=== PATIENT | female | born 1990 | race Caucasian/White ===

== ENCOUNTER → 2022-07-28 09:38 | Outpatient (CLI) | payer MEDICAID, SELFPAY ==
[2022-07-28 11:03] LABS: HCG,Quantitative 45 mIU/ml (0-5.42)
[2022-07-29 09:51] LABS: Progesterone 17.6 ng/mL (.)
== END ==
PROVIDERS: Visit Provider Obstetrics & Gynecology
DX: Z34.90 Encounter for supervision of normal pregnancy, unspecified, unspecified trimester (principal)
CPT/HCPCS: 36415; 84144; 84702

== ENCOUNTER → 2022-07-30 10:24 | Outpatient (CLI) | payer MEDICAID, SELFPAY ==
[2022-07-30 12:34] LABS: HCG,Quantitative 145 mIU/ml (0-5.42)
== END ==
PROVIDERS: Visit Provider Obstetrics & Gynecology
DX: Z34.90 Encounter for supervision of normal pregnancy, unspecified, unspecified trimester (principal)
CPT/HCPCS: 36415; 84702

== ENCOUNTER 2022-08-20 14:29 | Emergency (ER) | payer MEDICAID, SELFPAY ==
[2022-08-20 14:30] VITALS: BP 136/88; PULSE 120; RESP 17; TEMP 36.8; O2SAT 100; BMI 19.3
--- NOTE | 2022-08-20 14:38 | HMH.EDNVD ---
Discharge Plan Disposition Patient Disposition: Home, Self-Care Prescriptions Prescriptions: New metoclopramide HCl [Reglan] 10 mg tablet 10 mg PO Q6H PRN (Reason: nausea and vomiting) Qty: 20 0RF Referrals Follow up/Referrals: Provider,Referral, [Primary Care Provider] - See instructions Activity Restrictions/Add. Instructions Additional Instructions/Restrictions: Drink clear liquids for the next day or 2. Your work-up in the emergency department and not reveal any life-threatening conditions. It seems that you are having vomiting from your . This is called hyperemesis gravidarum. Please return to the emergency department immediately if you feel worse in any way. Follow-up with your patient accounts coordinator/hse specialist in the next 2 to 3 days if you do not improve. Clinical Impressions Clinical Impression: Hyperemesis gravidarum Instructions Patient Instructions: DI for Hyperemesis Gravidarum Discharge ED Provider: Raz Ruiz Nausea/Vomiting/Diarrhea HPI General Chief complaint: Nausea/Vomiting/Diarrhea Stated complaint: nausea,7 weeks ,possible dehydrated Time Seen by Provider: 08/20/22 14:33 Mode of Arrival: Family Vehicle Source of Information: Patient History of Present Illness HPI Narrative: The patient presents to the emergency department complaining of nausea and vomiting for about 1 week. She states that she is 7 weeks . This is her third . She denies any vaginal bleeding or abdominal pain. She also denies pelvic pain. She states that she did have nausea and vomiting with the other 2 pregnancies. However this seems to be worse than the prior ones. She feels lightheaded when standing. She has not had any syncopal episodes. She has not had any diarrhea. And she has had no fever. Related Data Previous Rx's Medication Instructions Recorded metoclopramide HCl 10 mg tablet 10 mg PO Q6H PRN nausea and 08/20/22 (Reglan) vomiting #20 tabs Allergies Allergy/AdvReac Type Severity Reaction Status Date / Time No Known Allergies Allergy Verified 07/27/22 13:22 [facility] Disclaimer: The information contained in this section may have been updated after the patient was seen, as this information can be updated by other users. Medical History (Updated 08/20/22 @ 15:10 by Raz Ruiz MD) No significant past medical history Family History (Updated 04/22/23 @ 14:46 by Milvia Montgomery RN) Other No significant family history Social History (Updated 08/20/22 @ 14:46 by Milvia Montgomery RN) Smoking Status: Never smoker alcohol intake: never current occupational status: other Travel in the last 8 weeks: None ROS Obtained: Yes All systems reviewed & no additional complaints except as documented Physical Exam General General appearance: alert Head Head exam: atraumatic Eye Eye exam: Present normal appearance; Absent scleral icterus or jaundice ENT ENT exam: Present normal exam Neck Neck exam: Present normal inspection and full ROM; Absent tenderness or meningismus Chest Chest inspection: Present normal inspection and symmetric chest wall rise; Absent tenderness Respiratory Respiratory exam: Present normal lung sounds bilaterally; Absent respiratory distress or accessory muscle use Cardiovascular Cardiovascular exam: Present regular rate, normal rhythm, tachycardia and normal heart sounds Abdominal Exam Abdominal exam: Present soft and normal bowel sounds; Absent distention, tenderness, heel tap sign, Hickman's sign, Rovsing's sign, tenderness at McBurney's Point or mass Extremities Exam Extremities exam: Present normal inspection and full ROM Back Exam Back exam: Present normal inspection; Absent CVA tenderness (R) or CVA tenderness (L) Neurological Exam Neurological exam: Present alert and oriented X3 Psychiatric Psychiatric exam: Present normal affect and normal mood Skin Skin exam: Present warm, dry, intact and normal co
[2022-08-20 14:47] LABS: Microscopic, Urine URINE MICROSCOPIC (MICROSCOPIC)
[2022-08-20 14:48] LABS: Appearance,Urine CLEAR (Clear); Bilirubin,Urine Negative (Negative); Blood, Urine Negative (Negative); Color,Urine YELLOW (Yellow); Glucose,Urine (UA) Negative (Negative); Ketones,Urine 3+ (Negative); Leukocyte Esterase,Urine Negative (Negative); Nitrate,Urine Negative (Negative); Protein,Urine Negative (Negative); Specific Gravity, Urine 1.015 (1.005-1.030); Urobilinogen,Urine 0.2 EU/dl (0.2)
[2022-08-20 14:54] LABS: Basophils % 0.2 % (0.1-2.0); Eosinophils # 0.1 K/mm3 (0.0-0.4); Eosinophils % 0.6 % (0.1-12.0); Hematocrit 40.1 % (37.0-47.0); Hemoglobin 13.4 g/dL (12.2-16.2); Lymphocytes # 2.4 K/mm3 (0.7-4.5); Lymphocytes % 24.9 % (10-50); Mean Corpuscular HGB Conc 33.5 g/dL (31.8-35.4); Mean Corpuscular Hemoglobin 30.8 pg (27.0-31.2); Mean Corpuscular Volume 92.1 fl (81-99); Mean Platelet Volume 8.5 fl (7.4-10.4); Monocytes # 0.6 K/mm3 (0.1-1.0); Monocytes % 6.1 % (1.7-9.3); Neutrophils # 6.7 K/mm3 (1.8-7.8); Neutrophils % 68.2 % (37.0-80.0); Platelet Count 253 K/mm3 (142-424); Red Blood Count 4.35 M/mm3 (4.20-5.40); Red Cell Distribution Width 12.5 % (11.5-17.5); White Blood Count 9.8 K/mm3 (4.8-10.8)
[2022-08-20 14:57] LABS: Chloride 101 mmol/L (98-107); Potassium 3.6 mmoL/L (3.5-5.1); Sodium 136 mmol/L (136-145)
[2022-08-20 14:59] LABS: Alanine Aminotransferase 18 U/L (12-78); Alkaline Phosphatase 68 U/L (38-126); Anion Gap 14.6 mEq/L (5-15); Aspartate Amino Transferase 29 U/L (14-36); Bilirubin,Total 0.6 mg/dl (0.2-1.3); Blood Urea Nitrogen 8 mg/dl (7-17); Carbon Dioxide 24 mmol/L (22.0-30.0); Creatinine Clearance Estimated 130 mL/min (50-200); Estimated Glomerular Filt Rate 146 ml/min (>60); GFR (African American) 177 ML/MIN (>60); Lipase 69 U/L (23-300)
[2022-08-20 15:00] LABS: Albumin Level 4.7 g/dl (3.5-5.0); Albumin/Globulin Ratio 1.3 (1.1-1.8); Calcium 9.5 mg/dl (8.4-10.2); Globulin 3.6 g/dL (1.3-3.2); Glucose 96 mg/dl (74-100); Total Protein,Serum 8.3 g/dl (6.3-8.2)
--- NOTE | 2022-08-20 15:04 | PC.NURSE ---
notified radiology ER MD ordering transvaginal u/s for r/o torsion. state she will call in staff
--- NOTE | 2022-08-20 15:08 | PC.NURSE ---
DR VEGA AT BEDSIDE TO REEVALUATE PT
[2022-08-20 15:18] LABS: Bacteria,Urine 1+ /lpf; RBC,Urine Occasional #/hpf (0-3)
--- NOTE | 2022-08-20 15:24 | PC.NURSE ---
DR VEGA AT BEDSIDE TO REEVALUATE PT AFTER PO FLUIDS. PT UPDATED ON POC AT THIS TIME
[2022-08-20 15:25] VITALS: BP 116/58; PULSE 89; RESP 18; O2SAT 100
[2022-08-20 15:30] VITALS: BP 119/68; PULSE 85; RESP 16; O2SAT 100
[2022-08-20 15:38] VITALS: BP 119/68; PULSE 82; RESP 17; TEMP 36.8; O2SAT 98
== END 2022-08-20 15:40 | disposition home or self-care (01) ==
PROVIDERS: Emergency Provider Emergency Medicine
DX: O21.9 Vomiting of pregnancy, unspecified (principal); Z3A.01 Less than 8 weeks gestation of pregnancy
CPT/HCPCS: 80053; 81001; 83690; 85025; 96360; 96361; 96374; 99284; 99285

== ENCOUNTER → 2022-08-23 17:11 | Outpatient (CLI) | payer MEDICAID, SELFPAY ==
[2022-08-23 18:09] LABS: Barbiturates Screen,Urine Negative ng/ml (<200)
[2022-08-23 18:10] LABS: Benzodiazepines Screen,Urine Negative ng/ml (<200)
[2022-08-23 18:11] LABS: Amphetamine/Metha Screen,Urine Negative ng/ml (<1000); Cannabinoid Screen,Urine Positive ng/ml (<50)
[2022-08-23 18:12] LABS: Cocaine Screen,Urine Negative ng/ml (<300)
[2022-08-23 18:13] LABS: Methadone Screen,Urine Negative ng/ml (<300); Opiate Screen,Urine Negative ng/ml (<300)
[2022-08-23 18:14] LABS: Phencyclidine Screen,Urine Negative ng/ml (<25)
[2022-08-26 05:34] LABS: Neisseria gonorrhoeae, NAA Negative (Negative)
== END ==
PROVIDERS: PCP Obstetrics & Gynecology; Visit Provider Obstetrics & Gynecology
DX: Z34.90 Encounter for supervision of normal pregnancy, unspecified, unspecified trimester (principal)
CPT/HCPCS: 80305; 87086; 87491; 87591

== ENCOUNTER → 2022-09-09 09:29 | Outpatient (CLI) | payer MEDICAID, SELFPAY ==
[2022-09-09 10:33] LABS: Basophils % 0.2 % (0.1-2.0); Eosinophils # 0.1 K/mm3 (0.0-0.4); Eosinophils % 0.9 % (0.1-12.0); Hematocrit 35.5 % (37.0-47.0); Hemoglobin 11.7 g/dL (12.2-16.2); Lymphocytes # 1.4 K/mm3 (0.7-4.5); Lymphocytes % 20.6 % (10-50); Mean Corpuscular HGB Conc 32.9 g/dL (31.8-35.4); Mean Corpuscular Hemoglobin 30.7 pg (27.0-31.2); Mean Corpuscular Volume 93.5 fl (81-99); Mean Platelet Volume 8.1 fl (7.4-10.4); Monocytes # 0.3 K/mm3 (0.1-1.0); Monocytes % 4.6 % (1.7-9.3); Neutrophils % 73.7 % (37.0-80.0); Platelet Count 241 K/mm3 (142-424); Red Cell Distribution Width 12.5 % (11.5-17.5); White Blood Count 6.8 K/mm3 (4.8-10.8)
[2022-09-10 10:38] LABS: HIV Screen 4th Generation wRfx Non Reactive (Non Reactive); Rapid Plasma Reagin Ab Titer Non Reactive (NonRea<1:1)
[2022-09-20 10:24] LABS: Hepatitis C Antibody Non Reactive
[2022-10-16 16:03] LABS: Hepatitis B Surface Antigen Negative
== END ==
PROVIDERS: Visit Provider Obstetrics & Gynecology
DX: Z34.90 Encounter for supervision of normal pregnancy, unspecified, unspecified trimester (principal)
CPT/HCPCS: 36415; 85025; 86593; 86703; 86762; 86850; 87340; 87380; G0432

== ENCOUNTER → 2022-11-23 10:24 | Outpatient (CLI) | payer MEDICAID, SELFPAY ==
--- NOTE | 2022-11-23 10:27 | US_ITS ---
PROCEDURE: US OB /MATERNAL DETAIL CLINICAL INDICATION: 20 week anatomy scan COMPARISON: No exams were available for comparison FINDINGS: Transabdominal and transvaginal sonographic images were obtained of the uterus. From her established due date she is 20 weeks 0 days. Single viable intrauterine gestation. Breech position. Placenta: Anteriorplacenta grade 1. THERE IS MARGINAL PLACENTA PREVIA 3.4 MM FROM THE INTERNAL CERVICAL OS TRANSVAGINAL VIEW There is average amount fluid. The cervix appears satisfactory. Closed and measuring 3.4 cm in length. Complete survey performed and was unremarkable on the submitted images as in PACS. No major anomalies identified on survey imaging by technologist. Active fetus. Three-vessel cord with satisfactory umbilical cord insertion. 4- chamber heart noted. Situs, aortic arch, LVOT, RVOT appear normal. Survey of brain & ventricles Unremarkable. Cerebellum, choroid plexus, cisterna magna, thalamus appears normal. Face and neck survey unremarkable. Profile, nose and lips, nasion appear normal. Diaphragm and chest views unremarkable. Abdomen: Both kidneys noted. 2.8 millimeter renal pyelectasis is noted on one kidney. Stomach and bladder noted and satisfactory. Spine: Survey of the spine satisfactory with no anomalies identified nor imaged. Upper, thoracic and lower spine appear normal. Both arms and legs noted. Amniotic Fluid: Adequate. Measurements: Average ultrasound age 20weeks 4days. Estimated due date by ultrasound age 1204/08/2023. Estimated weight 358g BPD = 20weeks 6days HC = 20weeks 1day AC = 20weeks 6days FL = 20weeks 2days Growth Percentile= 74 Heart Rate = 153bpm Cerebellum = 19weeks 6days Humerus = 20weeks 4days HC/AC is 1.12 FL/BPD is 0.67 FL/AC is 0.21 IMPRESSION: 1. Viable fetus in the breech presentation with an anterior placenta grade 1. 2. THE PLACENTA IS MARGINAL PREVIA 3.4 MM FROM THE INTERNAL OS. 3. There is mild renal pyelectasis in 1 kidney, 2.8 mm. 4. The rest of the anatomical scan appears normal. 5. Difficult examination due to the breech presentation. Dictated by: Lj Biswas MD 11/23/2022 16:46 Lj Biswas MD in OV 11/23/2022 16:46
== END ==
PROVIDERS: PCP Obstetrics & Gynecology; Visit Provider Obstetrics & Gynecology
DX: Z34.92 Encounter for supervision of normal pregnancy, unspecified, second trimester (principal); Z3A.20 20 weeks gestation of pregnancy
CPT/HCPCS: 76811

== ENCOUNTER → 2022-12-28 08:54 | Outpatient (CLI) | payer MEDICAID, SELFPAY ==
[2022-12-28 09:41] LABS: Basophils % 0.4 % (0.1-2.0); Eosinophils # 0.1 K/mm3 (0.0-0.4); Eosinophils % 1.1 % (0.1-12.0); Hematocrit 33.6 % (37.0-47.0); Hemoglobin 11.5 g/dL (12.2-16.2); Lymphocytes # 1.5 K/mm3 (0.7-4.5); Lymphocytes % 21.9 % (10-50); Mean Corpuscular HGB Conc 34.2 g/dL (31.8-35.4); Mean Corpuscular Hemoglobin 31.8 pg (27.0-31.2); Mean Corpuscular Volume 92.8 fl (81-99); Mean Platelet Volume 8.1 fl (7.4-10.4); Monocytes # 0.3 K/mm3 (0.1-1.0); Monocytes % 4.8 % (1.7-9.3); Neutrophils % 71.7 % (37.0-80.0); Platelet Count 238 K/mm3 (142-424); Red Blood Count 3.61 M/mm3 (4.20-5.40); Red Cell Distribution Width 13.1 % (11.5-17.5)
[2022-12-28 09:47] LABS: Glucose,Fasting 81 mg/dl (74-100)
[2022-12-28 11:09] LABS: Glucose 1 Hour 88 mg/dL (74-100)
== END ==
PROVIDERS: Visit Provider Obstetrics & Gynecology
DX: Z34.92 Encounter for supervision of normal pregnancy, unspecified, second trimester (principal); Z3A.26 26 weeks gestation of pregnancy
CPT/HCPCS: 36415; 82951; 85025

== ENCOUNTER → 2023-03-17 17:38 | Outpatient (CLI) | payer MEDICAID, SELFPAY | PROVIDERS: PCP Obstetrics & Gynecology; Visit Provider Obstetrics & Gynecology | DX: Z34.93 Encounter for supervision of normal pregnancy, unspecified, third trimester (principal); Z3A.36 36 weeks gestation of pregnancy | CPT/HCPCS: 86403 ==

== ENCOUNTER 2023-04-03 18:50 | Inpatient (IN) | payer MEDICAID, SELFPAY ==
[2023-04-03 17:08] VITALS: BMI 24.6
[2023-04-03 17:09] VITALS: BP 134/92; PULSE 112; RESP 18; TEMP 36.6; O2SAT 99; BMI 24.6
[2023-04-03 17:35] LABS: Microscopic, Urine URINE MICROSCOPIC (MICROSCOPIC)
[2023-04-03 18:24] LABS: Appearance,Urine CLEAR (Clear); Bilirubin,Urine Negative (Negative); Blood, Urine Negative (Negative); Color,Urine YELLOW (Yellow); Glucose,Urine (UA) Negative (Negative); Ketones,Urine Negative (Negative); Leukocyte Esterase,Urine TRACE (Negative); Nitrate,Urine Negative (Negative); Protein,Urine Negative (Negative); Specific Gravity, Urine 1.015 (1.005-1.030)
[2023-04-03 18:28] LABS: Amphetamine/Metha Screen,Urine Negative ng/ml (<1000)
[2023-04-03 18:29] LABS: Barbiturates Screen,Urine Negative ng/ml (<200)
[2023-04-03 18:30] LABS: Benzodiazepines Screen,Urine Negative ng/ml (<200); Cannabinoid Screen,Urine Negative ng/ml (<50)
[2023-04-03 18:31] LABS: Cocaine Screen,Urine Negative ng/ml (<300); Methadone Screen,Urine Negative ng/ml (<300)
[2023-04-03 18:32] LABS: Opiate Screen,Urine Negative ng/ml (<300)
[2023-04-03 18:33] LABS: Phencyclidine Screen,Urine Negative ng/ml (<25)
[2023-04-03 18:40] LABS: Squamous Epithelial Cell,Urine Occasional #/hpf (0-5); WBC,Urine Occasional #/hpf (0-3)
--- NOTE | 2023-04-03 18:52 | EXP.OB.APHP ---
OB - H&P: HPI Antepartum History of Present Illness Chief complaint: Painful uterine contractions History of present illness: Ms Dolores Rose is a at 38w6d who presents to [facility] Labor and Delivery with complaint of painful uterine contractions that started at 0400 this morning. She has had good care. Baby is active. Denies leakage of fluid and vaginal bleeding. History of Present Criteria for establishing EDC:: LMP confirmed by 1st trimester US care: good care Ultrasounds: normal mid trimester US Obstetrical complications: none Medical complications: none Labs Blood type: A (+) positive Rubella: immune RPR/VDRL: nonreactive GBS status: negative HBsAG: negative [facility] Disclaimer: The information contained in this section may have been updated after the patient was seen, as this information can be updated by other users. Medical History (Updated 04/03/23 @ 19:07 by Rosalina Ward DO) Active labor Marginal placenta previa Marijuana use during with 38 completed weeks gestation Pyelectasis of fetus on ultrasound Surgical History No history of previous surgery Family History Other Cancer Diabetes No significant family history Social History Smoking Status: Never smoker alcohol intake: never substance use type: former substance user and marijuana current occupational status: unemployed Travel in the last 8 weeks: None Review of Systems Review of Systems Review of systems:: pertinent systems reviewed and negative unless documented below *Genitourinary Comments: + painful contractions Meds Home Medications and Allergies Home Medications Medication Instructions Recorded Confirmed Type prenat.vits,luisito,vxr-xlyu-glqhg 1 tab PO DAILY 08/23/22 03/28/23 History New Prescriptions to Start Prescriptions: Allergies Allergy/AdvReac Type Severity Reaction Status Date / Time No Known Allergies Allergy Verified 03/28/23 10:16 OB - H&P: Exam Physical Exam Vital signs: Temp Pulse Resp BP Pulse Ox O2 Del Method 97.9 F 112 H 18 134/92 H 99 Room Air 04/03/23 17:09 04/03/23 17:09 04/03/23 17:09 04/03/23 17:09 04/03/23 17:09 04/03/23 17:09 Constitutional no acute distress and cooperative Routine HEENT Exam Head: Present normocephalic and atraumatic Eye: Absent conjunctivae pink ENT: Present mucous membranes moist Routine Neck Exam Present full ROM Routine Respiratory Exam Present CTA bilaterally and normal respiratory effort Routine Cardiovascular Exam Present RRR Routine Abdominal Exam Present soft (Gravid); Absent tenderness Routine Rectal Exam Patient deferred: visual exam Routine Exam Patient deferred: external exam Routine Extremities Exam Present full ROM; Absent edema or calf tenderness Routine Neurological Exam Present alert, oriented X3 and moving all extremities Routine Psychiatric Exam Present normal affect and cooperative Detailed Labor and Delivery Exam Dilation (cm): 5 Effacement (%): 75 Cervix position: mid station: -1 Consistency: soft Membranes: intact Baseline heart rate: 130 monitor accelerations: Present monitor decelerations: Early prison variability: Moderate (11-25) OB - Results Labs Labs: Urine 04/03/23 Range/Units 17:08 Urine Color Yellow (Yellow) Urine Appearance Clear (Clear) Urine pH 7.0 (5.0-8.5) Ur Specific [place] 1.015 (1.005-1.030) Urine Protein Negative (Negative) Urine Glucose (UA) Negative (Negative) OB - A/P Antepartum (1) with 38 completed weeks gestation: Status: Acute (2) Active labor: Status: Acute (3) Marijuana use during : Status: Acute Additional Plan Planning to
[2023-04-03 19:47] VITALS: TEMP 37
[2023-04-03 19:48] LABS: Basophils % 0.2 % (0.1-2.0); Eosinophils # 0.1 K/mm3 (0.0-0.4); Eosinophils % 0.4 % (0.1-12.0); Hematocrit 30.7 % (37.0-47.0); Hemoglobin 10.4 g/dL (12.2-16.2); Lymphocytes # 1.9 K/mm3 (0.7-4.5); Lymphocytes % 14.2 % (10-50); Mean Corpuscular Hemoglobin 29.3 pg (27.0-31.2); Mean Platelet Volume 8.6 fl (7.4-10.4); Monocytes # 0.8 K/mm3 (0.1-1.0); Monocytes % 5.9 % (1.7-9.3); Neutrophils # 10.5 K/mm3 (1.8-7.8); Neutrophils % 79.4 % (37.0-80.0); Platelet Count 288 K/mm3 (142-424); Red Blood Count 3.57 M/mm3 (4.20-5.40); Red Cell Distribution Width 13.7 % (11.5-17.5); White Blood Count 13.2 K/mm3 (4.8-10.8)
--- NOTE | 2023-04-03 20:21 | P.PNANES_ITS ---
[facility] Disclaimer: The information contained in this section may have been updated after the patient was seen, as this information can be updated by other users. Medical History Active labor Marginal placenta previa Marijuana use during with 38 completed weeks gestation Pyelectasis of fetus on ultrasound Surgical History No history of previous surgery Family History Other Cancer Diabetes No significant family history Social History (Updated 04/03/23 @ 20:04 by Gali Castro RN) Smoking Status: Current every day smoker tobacco type: e-cigarettes alcohol intake: never substance use type: former substance user and marijuana current occupational status: unemployed Travel in the last 8 weeks: None do you feel safe at home: Yes victim of physical abuse: No victim of emotional abuse: No victim of sexual abuse: No [facility] Anesthesia Checklist Patient Identification Patient Identification: Arm Band Structural Data Admitted From: Inpatient Planned Operative Procedure/s: Labor Epidural Consent for Planned Operative Procedure(s) Verified: Yes Verified Documents: Surgical Consent and History and Physical NPO Status Verified Time NPO: 00:00 Additional verifications Anesthesia Reactions: No Airway Assessment Dentition: Good Dentition Neurological Assessment Level of Consciousness: Awake and Alert Anesthesia Plan Anesthesia Risk discussed: Yes Anesthesia Plan: Verified ASA Class: II Anesthesia Type: Epidural
--- NOTE | 2023-04-03 23:01 | EXP.DN ---
Delivery Note Delivery Date:: 04/03/23 Delivery Time:: 22:43 Anesthesia Type: Epidural Was labor medically induced?: No Gestational age (weeks): 38 Infant delivered prior to 39 weeks?: Yes Justification for early elective delivery:: Active Labor Gender: Female at 1 minute: 9 at 5 minutes: 9 Delivery Procedure:: Mom complete with epidural. Pushed for approximately 9 minutes. Head delivered spontaneously over intact perineum in DARRIUS position. Nuchal cord delivered through. Anterior shoulder delivered spontaneously. Posterior shoulder and remainder of body delivered spontaneously. Baby placed on maternal abdomen, mouth and nares bulb suctioned, warmed/dried and stimulated. Delayed cord clamping was performed for 60 seconds. Cord was clamped and cut by father of baby. Cord blood was obtained. Placenta delivered spontaneously and intact. Second degree perineal laceration repaired with 3-0 Vicryl. Hemostasis noted. Mom and baby were skin to skin and doing well after delivery. Live female baby (baby's name is Andreina) APGARs 9 (1 min), 9 (5 min) EBL 150 mL Placental Delivery Description: Spontaneous
[2023-04-04 04:47] VITALS: BP 120/74; PULSE 110; RESP 17; TEMP 37.1; O2SAT 99
[2023-04-04 06:36] LABS: Basophils % 0.2 % (0.1-2.0); Eosinophils # 0.1 K/mm3 (0.0-0.4); Eosinophils % 0.6 % (0.1-12.0); Hematocrit 30.4 % (37.0-47.0); Hemoglobin 10.1 g/dL (12.2-16.2); Lymphocytes # 1.3 K/mm3 (0.7-4.5); Lymphocytes % 8.4 % (10-50); Mean Corpuscular HGB Conc 33.3 g/dL (31.8-35.4); Mean Corpuscular Hemoglobin 28.3 pg (27.0-31.2); Mean Corpuscular Volume 85.1 fl (81-99); Mean Platelet Volume 8.6 fl (7.4-10.4); Monocytes # 0.9 K/mm3 (0.1-1.0); Monocytes % 5.7 % (1.7-9.3); Neutrophils # 13.1 K/mm3 (1.8-7.8); Neutrophils % 85.1 % (37.0-80.0); Platelet Count 260 K/mm3 (142-424); Red Blood Count 3.57 M/mm3 (4.20-5.40); Red Cell Distribution Width 13.8 % (11.5-17.5); White Blood Count 15.4 K/mm3 (4.8-10.8)
[2023-04-04 06:38] LABS: MANUAL DIFFERENTIAL MANUAL DIFFERENTIAL (MANUAL DIFF)
[2023-04-04 07:38] LABS: Lymphocytes % 8 % (10-50); Monocytes % 6 % (2-9); Neutrophils % 86 % (42-76); Platelet Estimate Normal; RBC Morphology Normal; Total Cells Counted 100
[2023-04-04 08:45] VITALS: BP 105/57; PULSE 104; RESP 18; TEMP 36.6; O2SAT 98
--- NOTE | 2023-04-04 15:33 | EXP.ACUTE.PN ---
Subjective *Date: 04/04/23 *Time: 15:33 Interval history: PPD # 1 s/p Resting comfortably in bed. Appropriate lochia. She is formula feeding. Voiding without difficulty and passing flatus. Tolerating regular diet. Denies fever/chills, chest pain and shortness of breath. No headaches, lightheadedness/dizziness. Ambulating well ad aileen. Medical Exam Vital signs and Labs for Last 24 Hours: Vital Signs Temp Pulse Resp BP Pulse Ox O2 Del Method 04/04/23 08:45 97.9 F 104 H 18 105/57 L 98 Room Air 04/04/23 04:47 98.7 F 110 H 17 120/74 99 Room Air 04/03/23 19:47 98.6 F 04/03/23 17:09 97.9 F 112 H 18 134/92 H 99 Room Air Intake and Output 04/03/23 04/04/23 04/04/23 23:59 07:59 15:59 Other: Weight 139 lb Laboratory Results - last 24 hr 04/03/23 17:08: Urine Color Yellow, Urine Appearance Clear, Urine pH 7.0, Ur Specific [place] 1.015, Urine Protein Negative, Urine Glucose (UA) Negative, Urine Ketones Negative, Urine Blood Negative, Urine Nitrate Negative, Urine Bilirubin Negative, Urine Urobilinogen 1.0, Ur Leukocyte Esterase Trace, Urine RBC None, Urine WBC Occasional, Ur Squamous Epith Cells Occasional, Urine Bacteria None, Urine Opiates Screen Negative, Urine Methadone Screen Negative, Ur Barbituates Screen Negative, Ur Phencyclidine Scrn Negative, Ur Amphetamines Screen Negative, U Benzodiazepines Scrn Negative, Urine Cocaine Screen Negative, U Marijuana (THC) Screen Negative 04/03/23 19:05: WBC 13.2 H, RBC 3.57 L, Hgb 10.4 L, Hct 30.7 L, MCV 86.0, MCH 29.3, MCHC 34.0, RDW 13.7, Plt Count 288, MPV 8.6, Neut % (Auto) 79.4, Lymph % (Auto) 14.2, Payette % (Auto) 5.9, Eos % (Auto) 0.4, Baso % (Auto) 0.2, Neut # (Auto) 10.5 H, Lymph # (Auto) 1.9, Payette # (Auto) 0.8, Eos # (Auto) 0.1, Baso # (Auto) 0.0, Blood Type A Positive, Antibody Screen Negative 04/04/23 06:22: WBC 15.4 H, RBC 3.57 L, Hgb 10.1 L, Hct 30.4 L, MCV 85.1, MCH 28.3, MCHC 33.3, RDW 13.8, Plt Count 260, MPV 8.6, Neut % (Auto) 85.1 H, Lymph % (Auto) 8.4 L, Payette % (Auto) 5.7, Eos % (Auto) 0.6, Baso % (Auto) 0.2, Neut # (Auto) 13.1 H, Lymph # (Auto) 1.3, Payette # (Auto) 0.9, Eos # (Auto) 0.1, Baso # (Auto) 0.0, Total Counted 100, Neutrophils % (Manual) 86 H, Lymphocytes % (Manual) 8 L, Monocytes % (Manual) 6, Platelet Estimate Normal, RBC Morphology Normal I & O for Labs for Last 24 Hours: Intake & Output 04/01/23 04/02/23 04/03/23 04/04/23 23:59 23:59 23:59 23:59 Weight 139 lb Head: Present atraumatic and normocephalic ENT: Present normal exam Neck: Present full ROM Respiratory: Present CTA bilaterally and normal respiratory effort Cardiac: Present Reg Rate and Rhythm GI: Present soft; Absent distention or tenderness Comments:: Uterine fundus firm and below umbilicus Rectal (female): Present deferred (female): Present deferred Extremities: Present full ROM; Absent edema or calf tenderness Neuro: Present alert, awake, oriented x 3 and moves all extremities Assessment and Plan *Assessment and plan (1) with 38 completed weeks gestation: Status: Acute Category: Medical Code(s): Z3A.38 - 38 weeks gestation of (2) Status post vaginal delivery: Status: Acute Category: Surgical (3) Active labor: Status: Acute Category: Medical (4) Marijuana use during : Status: Acute Category: Medical Code(s): O99.320 - Drug use complicating , unspecified trimester; F12.90 - Cannabis use, unspecified, uncomplicated Plan Continue routine care Encouraged increased ambulation Plan d/c home PPD # 2
[2023-04-04 20:06] VITALS: BP 119/69; PULSE 83; RESP 17; TEMP 36.8; O2SAT 97
[2023-04-05 04:28] VITALS: BP 125/74; PULSE 83; RESP 16; TEMP 36.6; O2SAT 98
--- NOTE | 2023-04-05 07:30 | EXP.DC.SUM ---
General Admission date:: 04/03/23 Discharge date: 04/05/23 HPI HPI HPI: PPD # 2 s/p Feeling well this morning. Light lochia. Formula feeding. Pain controlled. Voiding without difficulty and passing flatus. Tolerating regular diet. No fever/chills, chest pain or shortness of breath. Denies headaches, vision changes, lightheadedness/dizziness. No lower extremity swelling. Ambulating well ad aileen. Hospital Course Hospital Course Hospital Course: Ms Dolores Rose is a at 38w6d who admitted to [facility] Labor and Delivery for active labor. GBS negative. Upon admission cervix was 5/75/-1. She had a normal spontaneous vaginal delivery on 04/03/23 at 2243. She delivered a live female baby, Andreina weighing 6 lb 13 oz. APGARs 9 (1 min), 9 (5 min). EBL 150 mL. She did well . Pain controlled. Light lochia. Formula feeding. Voiding without difficulty and passing flatus. Tolerating regular diet. No fever/chills, chest pain or shortness of breath. Denies headaches, vision changes, lightheadedness/dizziness. No lower extremity swelling. Ambulating well ad aileen. Normal hospital course. She was discharged home on PPD #2 with instructions to follow-up in the office in 2 weeks or sooner if needed. Exam Data for Last 24 hours Vital signs and Labs for Last 24 Hours: Temp Pulse Resp BP Pulse Ox O2 Del Method 97.8 F 83 16 125/74 98 Room Air 04/05/23 04:28 04/05/23 04:28 04/05/23 04:28 04/05/23 04:28 04/05/23 04:28 04/05/23 04:28 Laboratory Results - last 24 hr 04/04/23 06:22: Total Counted 100, Neutrophils % (Manual) 86 H, Lymphocytes % (Manual) 8 L, Monocytes % (Manual) 6, Platelet Estimate Normal, RBC Morphology Normal I & O for Last 24 hours: Intake & Output 04/02/23 04/03/23 04/04/23 04/05/23 23:59 23:59 23:59 23:59 Weight 139 lb Constitutional Constitutional: no acute distress and cooperative *Routine HEENT Exam Head: Present normocephalic and atraumatic Eye: Absent conjunctivae pink ENT: Present mucous membranes moist *Routine Neck Exam Neck: Present full ROM *Routine Respiratory Exam Respiratory: Present CTA bilaterally and normal respiratory effort *Routine Cardiovascular Exam Cardiovascular: Present RRR *Routine Abdominal Exam Abdominal: Present soft; Absent tenderness or distended Comments: Uterine fundus firm and below umbilicus *Routine Rectal Exam Patient deferred: visual exam *Routine Exam Patient deferred: external exam *Routine Extremities Exam Extremities: Present full ROM; Absent edema or calf tenderness *Routine Neurological Exam Neurological: Present alert, oriented X3 and moving all extremities Routine Psychiatric Exam Psychiatric: Present normal affect and cooperative Results Data Completed and Pending Labs on day of discharge: Labs from last 24 hours 04/04/23 06:22 Total Counted 100 Neutrophils % (Manual) 86 H Lymphocytes % (Manual) 8 L Monocytes % (Manual) 6 Platelet Estimate Normal RBC Morphology Normal DS: Diagnosis Discharge Diagnosis (1) with 38 completed weeks gestation: Status: Acute Code(s): Z3A.38 - 38 weeks gestation of (2) Status post vaginal delivery: Status: Acute (3) Active labor: Status: Acute (4) Marijuana use during : Status: Acute Code(s): O99.320 - Drug use complicating , unspecified trimester; F12.90 - Cannabis use, unspecified, uncomplicated Meds Home Medications and Allergies Home Medications Medication Instructions Recorded Confirmed Type ibuprofen 800 mg tablet 800 mg PO Q8H PRN pain #20 tabs 04/05/23 Rx New Prescriptions to Start Prescriptions: Rosalina Owusu Allergies Allergy/AdvReac Type Severity Reaction Status Date / Time No Known Allergies Allergy Verified 03/28/23 10:16 Discharge Plan Disposition Patient Disposition: Home, Self-Care Condition: Good Discharge
--- NOTE | 2023-04-05 07:59 | SW/DCPLANNER ---
Addendum entered by Haritha Daniels 04/07/23 07:56: Infant cord screen is NEGATIVE. Original Note: I received a consult on this patient regarding THC use during . Patient tested positive for THC on the following dates: 08/23/2022 and 10/18/2022. Patient was negative on the following dates: 01/10/2023, 03/06/2023 and 04/03/2023. Infant urine drug screen is negative. Patient stated that she quit using THC once she found out she was . Patient delivered infant female Andreina Ambrosio on 04/03/2023. 's father (Filomena Ambrosio 04/10/1989) was present at the time of my visit. Patient, Adnreina Bolanos and three other children (Jorge A Luke 01/27/12, Liat Luke 04/11/13 and Sujit Ambrosio 05/07/13) will reside at [address] [place] [address] in [place] [address]. Patient's contact number is [phone]. Patient stated no past Social Service involvement w/ other children. Patient is established w/ WIC. Patient stated that she will have the following items at home: crib, carseat, clothing, diapers and bottle feeding. PED MD will be Dr Goldstein. Patient stated that she will have transportation to all follow up appointments. OB staff stated that patient is appropriate w/ . Patient and are planned to discharge home today.
== END 2023-04-05 11:50 | disposition home or self-care (01) | DRG 807 ==
LOC: OBOUT 18:51 → OB 18:51
PROVIDERS: Admitting Provider Obstetrics & Gynecology; Visit Provider Obstetrics & Gynecology
DX: O99.324 Drug use complicating childbirth (principal); Z37.0 Single live birth; F12.90 Cannabis use, unspecified, uncomplicated; Z3A.38 38 weeks gestation of pregnancy; O70.1 Second degree perineal laceration during delivery
CPT/HCPCS: 59409; 36415; 59025; 80305; 81001; 85007; 85025; 86850; 94761; G0283; J1050

== ENCOUNTER 2025-02-26 12:35 | Outpatient (CLI) | payer MEDICAID, SELFPAY ==
--- OUTSIDE RECORDS SUMMARY | 2025-02-26 12:39 | XMS_ITS | Referral Summary ---
Author Organization [employer] ([place], [place], [place], [place]) Address [address] [place] [address] Care Team Providers Care Student Teacher Name Role Phone Unavailable Primary Care Provider Unavailabl e Social History Tobacco Use Types Packs/Day Years Used Date Smoking Tobacco: Never Assessed Comments Unknown Sex and Gender Information Value Date Recorded Sex Assigned at Female 10/26/2021 6:24 PM CDT Legal Sex Female 6:24 PM CDT Gender Identity Female 10/26/2021 6:24 PM CDT Sexual Orientation Not on file Plan of Treatment Not on file
--- OUTSIDE RECORDS SUMMARY | 2025-02-26 12:39 | XMS_ITS | Clinical Summary ---
Author Organization [facility] Address [address] [place] [address] Care Team Providers Care Oil Lease Operator Name Role Phone Provider, No Known Primary Care Provider Unavail able Allergies No known active allergies Medications Vit-Fe Fumarate-FA ( vitamin 27-0.8) 27-0.8 MG tablet tablet Take 1 tablet by mouth Daily. Active Active Problems Problem Noted Date Diagnosed Date Placenta previa antepartum 12/21/2022 12/21/2022 Social History Tobacco Use Types Packs/Day Years Used Date Smoking Tobacco: Never Smokeless Tobacco: Never Alcohol Use Standard Drinks/Week Comments Never 0 (1 standard drink = 0.6 oz pur e alcohol) Abuse Screen Answer Date Recorded Unsafe at Home or Work/School Not on file Feels Threatened by Someone? Not on file 03/2023 Does Anyone Keep You from Co ntacting Others or Doint Things Outside the Home? Not on file 02/08/2023 Physical Sign of Abuse Present Not on file 1 Housing Stability Answer Date Recorded Current Living Arrangements Not on file 01/29 Potentially Unsafe Housing Conditions Not on kristian e 02/08/2023 Family and Community Support Answer Hadley e Recorded Help with Day-to-Day Activities Not on file 02/08/2023 Lonely or Isolated Not on file 02/08/2023 Employment Answer Date Recorded Do you want help finding or keeping work or a joe b? Not on file 02/08/2023 Disabilities Answer Date Recorded Concentrating, Remembering, or Making Decisions Difficulty Not on file 02/08/2023 Doing Errands Independently Difficulty Not on fi le 02/08/2023 Education Answer Date Recorded Help with school or training? Not on file Preferred Language Not on file 02/08/2023 Comments No Sex and Gender Information Value Date Recorded Sex Assigned at Not on file Legal Sex Female 12:39 PM EDT Gender Identity Not on file Sexual Orientation Not on file Last Filed Vital Signs Vital Sign Reading Time Taken Comments Blood Pressure 122/63 02/15/2023 9:53 AM EDT Pulse - - Temperature - - Respiratory Rate - - Oxygen Saturation - - Inhaled Oxygen Concentration - - Weight 57.3 kg (126 lb 6.4 oz) 02/15/2023 9:53 A M EDT Height 160 cm (5' 3 ) 12/21/2022 10:45 AM EDT Body Mass Index 22.39 12/21/2022 10:45 AM EDT Plan of Treatment Health Maintenance Due Date Last Done Comments Annual Gynecologic Pelvic an d Breast Exam 1992 ANNUAL PHYSICAL 11/28/2022 HEPATITIS C SCREENING 11/28/2022 INFLUENZA VACCINE 11/29/2024 01/28/2009, 01/28/2009 TDAP/TD VACCINES (3 - Td or Tdap) 01/23/2033 01/23/2023, 12/17/2003 Pneumococcal Vaccine 0-49 Aged Out No longer eligible based on patient's age to complete this topic Insurance [place] [address] Care Teams Oil Lease Operator Relationship Specialty Start Date End Date Provider, No Known [facility] [place] [address] PCP - General 11/28/22
--- OUTSIDE RECORDS SUMMARY | 2025-02-26 12:39 | XMS_ITS | Clinical Summary ---
Author Organization [employer] ([place], [place], [place], [place]) Address [address] [place] [address] Care Team Providers Care Fiscal Economist Name Role Phone Unavailable Primary Care Provider [...]
== END 2025-02-26 23:59 | disposition home or self-care (01) ==
LOC: LAB 12:35
PROVIDERS: Visit Provider Obstetrics & Gynecology
DX: Z34.90 Encounter for supervision of normal pregnancy, unspecified, unspecified trimester (principal); N92.6 Irregular menstruation, unspecified; Z3A.00 Weeks of gestation of pregnancy not specified
CPT/HCPCS: 36415; 84144; 84702

== ENCOUNTER 2025-04-01 14:01 | Outpatient (CLI) | payer MEDICAID, SELFPAY ==
--- OUTSIDE RECORDS SUMMARY | 2025-04-01 14:03 | XMS_ITS | Clinical Summary ---
Author Organization [employer] ([place], [place], [place], [place], [place]) Address [address] [place] [address] Care Team Providers Care Garbage Truck Dispatcher Name Role Phone Unavailable Primary Care Provider [...]
--- OUTSIDE RECORDS SUMMARY | 2025-04-01 14:03 | XMS_ITS | Referral Summary ---
Author Organization [employer] ([place], [place], [place], [place], [place]) Address [address] [place] [address] Care Team Providers Care Drier Name Role Phone Unavailable Primary Care Provider [...]
--- OUTSIDE RECORDS SUMMARY | 2025-04-01 14:03 | XMS_ITS | Clinical Summary ---
Author Organization [facility] Address [address] [place] [address] Care Team Providers Care Electronics Recycler Name Role Phone Provider, No Known Primary [...] complete this topic [place] [address] Care Teams Electronics Recycler Relationship Specialty Start Date End Date Provider, No Known [facility] [address] PCP - General 11/28/22
[2025-04-01 14:47] LABS: Hematocrit 36.7 % (37.0-47.0); Hemoglobin 12.5 g/dL (12.2-16.2); Immature Granulocytes % 0.4 %; Mean Corpuscular HGB Conc 34.1 g/dL (31.8-35.4); Mean Corpuscular Hemoglobin 30.7 pg (27.0-31.2); Mean Corpuscular Volume 90.2 fl (81-99); Nucleated Red Blood Cells % 0 %; Platelet Count 260 K/mm3 (142-424); Red Blood Count 4.07 M/mm3 (4.20-5.40); Red Cell Distribution Width-SD 38.8 fL; White Blood Count 9.9 K/mm3 (4.8-10.8)
[2025-04-01 15:20] LABS: RPR W/RFX Titers Nonreactive (Nonreactive)
[2025-04-01 15:47] LABS: Hepatitis C Ab Qual. W/ RFX NEGATIVE (Negative)
[2025-04-03 08:21] LABS: Hepatitis B Surface Antigen Negative (Negative); Rubella Antibodies, IgG <0.90 index (Immune >0.99)
== END 2025-04-01 23:59 | disposition home or self-care (01) ==
LOC: LAB 14:01
PROVIDERS: Visit Provider Obstetrics & Gynecology
DX: Z34.90 Encounter for supervision of normal pregnancy, unspecified, unspecified trimester (principal); Z3A.00 Weeks of gestation of pregnancy not specified
CPT/HCPCS: 36415; 85025; 86592; 86762; 86787; 86803; 86850; 87340; 87389